=== PATIENT | male | born 1960 | race Caucasian/White ===

== ENCOUNTER 2021-09-28 13:41 | Emergency (ER) | payer OTHER ==
[2021-09-28 14:00] VITALS: RESP 18; TEMP 97.1
[2021-09-28 15:20] LABS: ALT 80 U/L (4-49); AST 215 U/L (17-59); African American GFR (CKD) >90 (>60 ml/min/1.73 sqM); Albumin 4.3 g/dL (3.5-5.0); Alkaline Phosphatase 105 U/L (38-126); Amylase 73 U/L (30-110); Anion Gap 12 mmol/L; Blood Urea Nitrogen 12 mg/dL (9-20); Calcium 8.4 mg/dL (8.4-10.2); Carbon Dioxide 24 mmol/L (22-30); Chloride 110 mmol/L (98-107); Glucose 106 mg/dL (74-99); Lipase 149 U/L (23-300); Magnesium 1.9 mg/dL (1.6-2.3); Non-African American GFR(CKD) 89 (>60 ml/min/1.73 sqM); Phosphorus 3.6 mg/dL (2.5-4.5); Sodium 146 mmol/L (137-145); Total Bilirubin 0.3 mg/dL (0.2-1.3); Total Protein 7.3 g/dL (6.3-8.2)
--- NOTE | 2021-09-28 15:23 | CT ---
EXAMINATION TYPE: CT brain dominic al DATE OF EXAM: 09/28/2021 COMPARISON: None available HISTORY: fall CT DLP: 1322.6 mGycm Automated exposure control for dose reduction was used. TECHNIQUE: CT scan of the head and cervical spine are performed without contrast. FINDINGS: Brain: Minimal gyriform hyperdensity seen along the posterior aspect of the left superior frontal sulcus whi ch could represent minimal subarachnoid hemorrhage. No other acute intracranial hemorrhage identified . Bilateral cerebral white matter hypodensities, nonspecific and could represent chronic microvascula r ischemic changes however other white matter abnormality cannot be excluded. No gross acute cortical infarct. No midline shift, herniation or ventricular obstruction. Unremarkabl e basal cisterns, sella and CP angles. No gross space-occupying lesion, vasogenic edema or mass effec t. Unremarkable orbits. Right frontal scalp swelling/hematoma. Clear visualized paranasal sinuses and mastoid air cells. No definite acute calvarial bone fracture identified. Cervical spine: Previous anterior cervical fixation from C5 to C7 using a plate and 6 screws. Multilevel disc prosthe sis is also noted. Anterolisthesis of C7 over T1 with severe bilateral C7-T1 facet osteoarthropathy. No definite vertebral body collapse or acute displaced fracture. Unremarkable atlantoaxial and atlant ooccipital articulations. No facetal dislocation or significant subluxation. Degenerative changes of the cervical spine with multilevel disc degeneration, uncovertebral osteoarth ropathy, opposing endplate osteophytosis and facet osteoarthropathy. Bilateral C3-4, mild right C4-5 and bilateral C6-7 neural foraminal stenosis. Spinal canal stenosis i s seen at C3-4 level. Small thyroid gland. Scattered arterial atherosclerotic calcifications. No para spinal lesion. IMPRESSION: 1. Suspected minimal left superior frontal subarachnoid hemorrhage without significant mass effect. O therwise no acute intracranial post traumatic sequelae or acute calvarial bone fracture. 2. No acute traumatic bony injury of the cervical spine. 3. Postsurgical changes and other incidental findings described above.
[2021-09-28 15:31] LABS: INR 0.9 (<1.2); Partial Thromboplastin Time 22.1 sec (22.0-30.0); Prothrombin Time 9.7 sec (9.0-12.0)
[2021-09-28 15:36] LABS: Alcohol 421 mg/dL
[2021-09-28 15:57] LABS: HCT 38.8 % (39.0-53.0); HGB 12.7 gm/dL (13.0-17.5); MCH 38.5 pg (25.0-35.0); MCHC 32.7 g/dL (31.0-37.0); MCV 117.7 fL (80.0-100.0); Macrocytosis Marked; Mean Platelet Volume 7.2; Platelet Count 322 k/uL (150-450); RDW 13.6 % (11.5-15.5); WBC 4.1 k/uL (3.8-10.6)
--- NOTE | 2021-09-28 16:09 | ED ---
Fall HPI - General Chief Complaint: Fall Stated Complaint: Fall/head injury Time Seen by Provider: 09/28/21 13:54 Source: patient, EMS, RN notes reviewed Mode of arrival: EMS - History of Present Illness Initial Comments: Patient is a 60-year-old male presents emergency room via EMS after stumbling and falling down 8-9 stairs and landing on his head. Patient denies any loss of consciousness prior to the event however significant alcohol intoxication is suspected. He denies any dizziness, LOC or weakness prior to or after falling down the stairs. He has a past medical history significant for hypertension. He denies any other significant complaints or concerns at this time. - Related Data Home Medications Medication Instructions Recorded Confirmed Cetirizine HCl [Zyrtec] 10 mg PO DAILY 09/28/21 09/28/21 Metoprolol Succinate (ER) [Toprol 50 mg PO DAILY 09/28/21 09/28/21 Xl] Omeprazole Magnesium [PriLOSEC OTC] 40 mg PO DAILY 09/28/21 09/28/21 amLODIPine 5 mg PO DAILY 09/28/21 09/28/21 hydrOXYzine HCL [Atarax] 50 mg PO HS 09/28/21 09/28/21 Allergies Allergy/AdvReac Type Severity Reaction Status Date / Time No Known Allergies Allergy Verified 09/28/21 16:22 Review of Systems ROS Statement: Those systems with pertinent positive or pertinent negative responses have been documented in the HPI. ROS Other: All systems not noted in ROS Statement are negative. Past Medical History Past Medical History: Hypertension History of Any Multi-Drug Resistant Organisms: None Reported Additional Past Surgical History / Comment(s): neck/spine surgery, multi fusions. Smoking Status: Former smoker Past Alcohol Use History: Heavy Past Drug Use History: None Reported General Exam General appearance: alert, in no apparent distress ( I), appears intoxicated Head exam: Present: other (Hematoma right frontal. small laceration approximately 2 inches legnth minimal depth. ) Eye exam: Present: PERRL, EOMI ENT exam: Present: normal exam, mucous membranes moist Neck exam: Present: normal inspection. Absent: tenderness, meningismus, lymphadenopathy Respiratory exam: Present: normal lung sounds bilaterally. Absent: respiratory distress, wheezes, rales, rhonchi, stridor Cardiovascular Exam: Present: regular rate, normal rhythm, normal heart sounds. Absent: systolic murmur, diastolic murmur, rubs, gallop, clicks GI/Abdominal exam: Present: soft, normal bowel sounds. Absent: distended, tenderness, guarding, rebound, rigid Extremities exam: Present: joint swelling. Absent: tenderness, pedal edema Neurological exam: Present: alert, oriented X3, CN II-XII intact Expanded Patient oriented to: Present: place, time Speech: Present: fluid speech Cranial nerves: EOM's Intact: Normal, Gag Reflex: Normal, Tongue Deviation: Normal, Nystagmus: Normal, Facial Sensation: Normal Cerebellar function: Finger to Nose: Normal, Heel to Coleman: Normal Motor strength exam: RUE: 5, LUE: 5, RLE: 5, LLE: 5 Eye Response: (4) open spontaneously Motor Response: (6) obeys commands Verbal Response: (5) oriented Iraan Total: 15 Psychiatric exam: Present: other (intoxicated). Absent: agitated Skin exam: Present: other (abrasion and ) Course Vital Signs 09/28/21 09/28/21 13:47 15:40 Temperature 97.1 F L Pulse Rate 74 85 Respiratory 18 18 Rate Blood Pressure 149/83 135/72 O2 Sat by Pulse 98 98 Oximetry Medical Decision Making - Medical Decision Making Computed tomography scan of head shows suspected minimal left superior frontal subarachnoid hemorrhage without significant mass effect otherwise no acute intracranial posttraumatic sequela acute pulmonary bone fractures. No acute medical bone injury of the cervical spine. Shira Horvath contacted regarding ER transfer for subarachnoid hemorrhage. Neuro status remains intact with GCS 15 with noted intoxication and elevated serum level of 450. Dr. Dobbs exempting provider Shira Horvath. - Lab Data Result diagrams: 09/28/21 15:03 Lab Results 09/28/21 09/28/21 Range/Units 15:03 15:03 PT 9.7 (9.0-12.0) sec INR 0.9 (<1.2) APTT 22.1 (22.0-30.0) sec Sodium 146 H (137-145) mmol/L Potassium 4.0 (3.5-5.1) mmol/L Chloride 110 H (98-107) mmol/L Carbon Dioxide 24 (22-30) mmol/L Anion Gap 12 mmol/L BUN 12 (9-20) mg/dL Creatinine 0.94 (0.66-1.25) mg/dL Est GFR (CKD-EPI)AfAm >90 (>60 ml/min/1.73 sqM) Est GFR (CKD-EPI)NonAf 89 (>60 ml/min/1.73 sqM) Glucose 106 H (74-99) mg/dL Calcium 8.4 (8.4-10.2) mg/dL Phosphorus 3.6 (2.5-4.5) mg/dL Magnesium 1.9 (1.6-2.3) mg/dL Total Bilirubin 0.3 (0.2-1.3) mg/dL AST 215 H (17-59) U/L ALT 80 H (4-49) U/L Alkaline Phosphatase 105 (38-126) U/L Total Protein 7.3 (6.3-8.2) g/dL Albumin 4.3 (3.5-5.0) g/dL Amylase 73 (30-110) U/L Lipase 149 (23-300) U/L Serum Alcohol 421 H* mg/dL - Radiology Data Radiology results: report reviewed, image reviewed Disposition Clinical Impression: Subarachnoid hemorrhage following injury Disposition: OTHER INSTITUTION NOT DEFINED Condition: Stable Is patient prescribed a controlled substance at d/c from ED?: No Referrals: None,Stated [Primary Care Provider] - 1-2 days Time of Disposition: 16:16 - Out of Hospital Transfer - Req. Specs Out of Hospital Transfer - Requested Specifics: Other Emergency Center
[2021-09-28 16:37] LABS: Basophils # (M) 0.04 k/uL (0-0.2); Eosinophils # (M) 0.04 k/uL (0-0.7); Lymphocytes # (M) 0.53 k/uL (1.0-4.8); Monocytes # (M) 0.37 k/uL (0-1.0); Neutrophils # (M) 3.12 k/uL (1.3-7.7); Neutrophils % (M) 76 %; Nucleated Red Blood Cells 0 /100 WBC (0-0); Total Cells Counted 100
[2021-09-28 17:10] VITALS: BP 137/81; PULSE 84
== END 2021-09-28 17:10 | disposition other institution (70) ==
LOC: EC 13:41
DX: S06.6X9A Traumatic subarachnoid hemorrhage with loss of consciousness of unspecified duration, initial encounter (principal); I10 Essential (primary) hypertension; Z87.891 Personal history of nicotine dependence; Z79.899 Other long term (current) drug therapy; W10.9XXA Fall (on) (from) unspecified stairs and steps, initial encounter
CPT/HCPCS: 36415; 70450; 72125; 80053; 80320; 82150; 83690; 83735; 84100; 85025; 85610; 85730; 99285